=== PATIENT | male | born 1980 | race Caucasian/White ===

== ENCOUNTER 2019-03-24 08:14 | Emergency (ER) | payer BC, OTHER ==
[~2019-03-24] VITALS: Ht 185.4 cm; Wt 132.7 kg
--- NOTE | 2019-03-24 08:30 | ED General ---
General Stated Complaint: RT CHEST/SHOULDER/BACK PAIN History of Present Illness Date Seen by Provider: Mar 24, 2019 Time Seen by Provider: 08:29 Initial Comments Patient presenting to emergency department for evaluation of right-sided chest pain that started yesterday afternoon at rest and has persisted. He says it is a sharp right-sided pain that radiates towards his right shoulder and right scap ular region and is worse with deep breaths and he feels that he cannot take in a deep breath. He does not feel short of breath and he denies any nausea vomiting diaphoresis. He denies any exertional pain or pain with eating. He has no medical history including no diabetes hypertension or high cholesterol but he does smoke cigarettes and says that his father had a heart attack in his 50s. He is in no obvious distress with normal vital signs except hypertension noted. Allergies and Home Medications Allergies Coded Allergies: Penicillins (Verified Allergy, Unknown, 03/24/19) Patient Home Medication List Home Medication List Reviewed: Yes Review of Systems Review of Systems Constitutional: no symptoms reported EENTM: no symptoms reported Respiratory: no symptoms reported Cardiovascular: chest pain Gastrointestinal: no symptoms reported Genitourinary: no symptoms reported Musculoskeletal: back pain Skin: no symptoms reported Psychiatric/Neurological: No Symptoms Reported All Other Systems Reviewed Negative Unless Noted: Yes Past Yhuwajs-Eeoqxv-Xfbtqt Hx Patient Social History Recent Foreign Travel: No Physical Exam Vital Signs Vital Signs - First Documented 03/24/19 08:20 Temp 36.6 Pulse 85 Resp 16 B/P (MAP) 153/107 (122) Pulse Ox 99 O2 Delivery Room Air Capillary Refill : Height, Weight, BMI Height: '" Weight: lbs. oz. kg; BMI Method: General Appearance: No Apparent Distress, WD/WN HEENT: PERRL/EOMI Neck: Supple Respiratory: No Respiratory Distress, Decreased Breath Sounds, Other (R sided chest wall ttp) Cardiovascular: Regular Rate, Rhythm Gastrointestinal: Non Tender, Soft Back: Normal Inspection Extremity: Normal Capillary Refill Neurologic/Psychiatric: Alert, Oriented x3 Progress/Results/Core Measures Suspected Sepsis SIRS Temperature: Pulse: Respiratory Rate: Laboratory Tests 03/24/19 08:30: White Blood Count 8.8 Blood Pressure / Mean: Laboratory Tests 03/24/19 08:30: Creatinine 1.04, Platelet Count 201, Total Bilirubin 0.4 Results/Orders Lab Results Laboratory Tests Test 03/24/19 08:30 Range/Units White Blood Count 8.8 4.3-11.0 10^3/uL Red Blood Count 5.48 4.35-5.85 10^6/uL Hemoglobin 16.9 13.3-17.7 G/DL Hematocrit 48 40-54 % Mean Corpuscular Volume 88 80-99 FL Mean Corpuscular Hemoglobin 31 25-34 PG Mean Corpuscular Hemoglobin Concent 35 32-36 G/DL Red Cell Distribution Width 14.1 10.0-14.5 % Platelet Count 201 130-400 10^3/uL Mean Platelet Volume 11.4 H 7.4-10.4 FL Neutrophils (%) (Auto) 56 42-75 % Lymphocytes (%) (Auto) 31 12-44 % Monocytes (%) (Auto) 9 0-12 % Eosinophils (%) (Auto) 3 0-10 % Basophils (%) (Auto) 1 0-10 % Neutrophils # (Auto) 4.9 1.8-7.8 X 10^3 Lymphocytes # (Auto) 2.7 1.0-4.0 X 10^3 Monocytes # (Auto) 0.8 0.0-1.0 X 10^3 Eosinophils # (Auto) 0.2 0.0-0.3 10^3/uL Basophils # (Auto) 0.1 0.0-0.1 10^3/uL D-Dimer 0.38 0.00-0.49 UG/ML Sodium Level 138 135-145 MMOL/L Potassium Level 4.3 3.6-5.0 MMOL/L Chloride Level 101 98-107 MMOL/L Carbon Dioxide Level 27 21-32 MMOL/L Anion Gap 10 5-14 MMOL/L Blood Urea Nitrogen 17 7-18 MG/DL Creatinine 1.04 0.60-1.30 MG/DL Estimat Glomerular Filtration Rate > 60 BUN/Creatinine Ratio 16 Glucose Level 115 H 70-105 MG/DL Calcium Level 9.6 8.5-10.1 MG/DL Corrected Calcium 9.4 8.5-10.1 MG/DL Total Bilirubin 0.4 0.1-1.0 MG/DL Aspartate Amino Transf (AST/SGOT) 41 H 5-34 U/L Alanine Aminotransferase (ALT/SGPT) 55 0-55 U/L Alkaline Phosphatase 91 40-136 U/L Troponin I < 0.30 <0.30 NG/ML Pro-B-Type Natriuretic Peptide < 5.0 <75.0 PG/ML Total Protein 8.1 6.4-8.2 GM/DL Albumin 4.3 3.2-4.5 GM/DL My Orders Orders - CARMELA ADAMS DO Comprehensive Metabolic Panel (03/24/19 08:36) Cbc With Automated Diff (03/24/19 08:36) Fibrin Degradation Products (03/24/19 08:36) Probnp Fs (03/24/19 08:36) Troponin I Fs (03/24/19 08:36) Chest 1 View Ap/Pa Only (03/24/19 08:36) Aspirin Chewable Tablet (Baby Aspirin Ch (03/24/19 08:45) Albuterol/Ipra Inhalation Soln (Duoneb I (03/24/19 08:45) Hydrocodone/Apap 5/325 Tablet (Lortab 5 (03/24/19 08:45) Ketorolac Injection (Toradol Injection) (03/24/19 08:45) Svn Small Volume Nebulizer (03/24/19 08:36) Medications Given in ED Current Medications Medications Dose Ordered Sig/David Route Start Time Stop Time Status Last Admin Dose Admin Acetaminophen/ Hydrocodone Bitart 2 tab ONCE ONCE PO 03/24/19 08:45 03/24/19 08:46 DC 03/24/19 08:45 2 TAB Albuterol/ Ipratropium 3 ml ONCE ONCE INH 03/24/19 08:45 03/24/19 08:46 DC 03/24/19 08:45 3 ML Aspirin 324 mg ONCE ONCE PO 03/24/19 08:45 03/24/19 08:46 DC 03/24/19 08:44 324 MG Ketorolac Tromethamine 15 mg ONCE ONCE IVP 03/24/19 08:45 03/24/19 08:46 DC 03/24/19 08:45 15 MG Vital Signs/I&O 03/24/19 03/24/19 08:20 08:20 Temp 36.6 Pulse 85 Resp 16 B/P (MAP) 153/107 (122) Pulse Ox 99 O2 Delivery Room Air Room Air Capillary Refill : Progress Note : Progress Note Patient has pleuritic chest pain as well as pain to palpation. He says movements of his torso make his pain worse as well. I have low suspicion for ACS at this time as I feel that it is more likely pleurisy or costochondritis. Will check labs imaging treat symptoms and reassess. EKG is negative for signs of ischemia. Patient's workup completely negative including an EKG and troponin that is negative more than 6 hours out from onset of symptoms. Patient's pain improved significantly after treatment here with Toradol [place] DuoNeb and aspirin. Patient's heart score is equal to 2. Using shared decision making the decision was to treat him for pleurisy and costochondritis as an outpatient have him follow with a primary care provider within 2-3 days to ensure improvement and to make sure no further cardiac risk stratification is be done and come back to the ED sooner with worsening pain shortness of breath or other general concerns. He says he does not have a primary care provider at this time and I offered to attempt to make an appointment for him however he refused stating that he wants to do it on his own. Patient will be discharged in stable condition told to follow-up and come back as above. Patient aware and agreeable with plan and verbalized understanding of the above instructions. Of note patient was told about his elevated blood pressure although it improved to 139/90 discharge. I told him he needs to have this rechecked to see if he needs to be treated for hypertension. Departure Impression Primary Impression: Chest wall pain Additional Impression: Pleuritic pain Disposition: HOME, SELF-CARE Condition: Stable Departure-Patient Inst. Referrals: NO,LOCAL PHYSICIAN (PCP/Family) Primary Care Physician Patient Instructions: Chest Pain (DC) Scripts Prednisone (Prednisone) 20 Mg Tab 40 MG PO DAILY, #8 TAB 0 Refills Prov: CARMELA ADAMS DO 03/24/19 Ibuprofen (Ibuprofen) 600 Mg Tablet 600 MG PO Q6H PRN for PAIN-MILD, #20 TAB Prov: CARMELA ADAMS DO 03/24/19 Albuterol Sulfate (PROAIR HFA) 1 Puff Puff 2 PUFF IH Q4H, #1 INHALER 1 PUFF = 90 MCG Prov: CARMELA ADAMS DO 03/24/19 CARMELA ADAMS DO Mar 24, 2019 08:29 POS
[2019-03-24] MEDS ORDERED: KETOROLAC 15 MG/ML VIAL IVP ONE (08:45)
[2019-03-24] MEDS ORDERED: RT-ALBUTEROL/IPRATROPIUM 3 ML (DUONEB) VIAL INH ONE (08:45)
[2019-03-24] MEDS ORDERED: ASPIRIN 81 MG CHEW (CHILDREN'S ASA) PO ONE (08:45)
[2019-03-24] MEDS ORDERED: HYDROcodone/APAP 5 MG/325 MG (LORTAB) TAB PO ONE (08:45)
[2019-03-24 08:53] LABS: HEMATOCRIT 48 % (40-54); HEMOGLOBIN 16.9 G/DL (13.3-17.7); MEAN CORPUSCULAR HEMOGLOBIN 31 PG (25-34); MEAN CORPUSCULAR HGB CONC 35 G/DL (32-36); MEAN CORPUSCULAR VOLUME 88 FL (80-99); WHITE BLOOD COUNT 8.8 10^3/uL (4.3-11.0)
[2019-03-24 08:54] LABS: BASOPHILS # (AUTO) 0.1 10^3/uL (0.0-0.1); BASOPHILS % (AUTO) 1 % (0-10); EOSINOPHILS # (AUTO) 0.2 10^3/uL (0.0-0.3); EOSINOPHILS % (AUTO) 3 % (0-10); LYMPHOCYTES # (AUTO) 2.7 X 10^3 (1.0-4.0); LYMPHOCYTES % (AUTO) 31 % (12-44); MEAN PLATELET VOLUME 11.4 FL (7.4-10.4); MONOCYTES # (AUTO) 0.8 X 10^3 (0.0-1.0); MONOCYTES % (AUTO) 9 % (0-12); NEUTROPHILS # (AUTO) 4.9 X 10^3 (1.8-7.8); NEUTROPHILS % (AUTO) 56 % (42-75); PLATELET COUNT 201 10^3/uL (130-400); RED CELL DISTRIBUTION WIDTH 14.1 % (10.0-14.5)
--- NOTE | 2019-03-24 08:54 | Diagnostic Imaging Report ---
INDICATION: Chest pain. COMPARISON: No prior examinations are available for comparison. FINDINGS: The heart size, mediastinal configuration, and pulmonary vascularity are within normal limits. There is no pleural effusion, pneumothorax, or pneumonia. The osseous structures are unremarkable. IMPRESSION: No acute cardiopulmonary abnormality. Dictated by: Dictated on workstation # [id number]
[2019-03-24 09:25] LABS: ALANINE AMINOTRANSFERASE 55 U/L (0-55); ALKALINE PHOSPHATASE 91 U/L (40-136); BILIRUBIN,TOTAL 0.4 MG/DL (0.1-1.0); BUN/CREATININE RATIO 16; CALCIUM 9.6 MG/DL (8.5-10.1); CARBON DIOXIDE 27 MMOL/L (21-32); CHLORIDE 101 MMOL/L (98-107); CREATININE SERUM 1.04 MG/DL (0.60-1.30); GFR ESTIMATED > 60; GLUCOSE 115 MG/DL (70-105); POTASSIUM 4.3 MMOL/L (3.6-5.0); SODIUM 138 MMOL/L (135-145)
[2019-03-24 09:26] LABS: ALBUMIN 4.3 GM/DL (3.2-4.5); TOTAL PROTEIN 8.1 GM/DL (6.4-8.2)
[2019-03-24] MEDS ORDERED: RT-ALBUINH IH (09:51)
[2019-03-24] MEDS ORDERED: PRD20T PO (09:51)
[2019-03-24] MEDS ORDERED: IBUP-1773 PO (09:51)
[2019-03-24] MEDS ORDERED: predniSONE 20 MG TAB PO ONE (10:00)
[2019-03-24 10:01] VITALS: BP 153/107
== END 2019-03-24 10:01 | disposition home or self-care (01) ==
LOC: EDUNIT# 08:14 → ER FS 08:16
DX: R07.89 Other chest pain (principal); R07.81 Pleurodynia; F17.210 Nicotine dependence, cigarettes, uncomplicated; Z88.0 Allergy status to penicillin
CPT/HCPCS: 36415; 71045; 80053; 83880; 84484; 85025; 85379; 96374

== ENCOUNTER 2022-07-26 08:30 | Inpatient (IN) | payer BC, OTHER ==
[~2022-07-26] VITALS: Ht 185 cm; Wt 127.7 kg
[~2022-07-26 08:30] MED LIST: ALBU8.5H6 IH; IBUP-1773 PO; PRD20T PO
--- NOTE | 2022-07-26 08:42 | ED Chest Pain ---
General Chief Complaint: Chest Pain Stated Complaint: CHEST PAIN Nursing Triage Note: Patient reports he has had sternal chest tightness for 1 week. He states the tightness is worse with activity and better with rest. History of Present Illness Date Seen by Provider: Jul 26, 2022 Time Seen by Provider: 08:41 Initial Comments 42-year-old male with no significant past medical history except for active smoker, smokes 1 pack a day for the past 20 years, is here with complaints of retrosternal chest tightness and pain which has been going on for 1 week. Patient states that it is aggravated with activity and associated with shortness of breath during that time, and alleviated by rest. Patient states that it has worsened last night and he wanted to make sure it was not his heart. Denies heartburn, acid reflux, fever and chills, palpitations, cough, recent illnesses, congestion, wheezing. Allergies and Home Medications Allergies Coded Allergies: Penicillins (Verified Allergy, Unknown, 03/24/19) Patient Home Medication List Home Medication List Reviewed: Yes Albuterol Sulfate (Ventolin Hfa) 1 Puff Puff, 2 PUFF IH Q4H Prescribed by: CARMELA ADAMS on 03/24/19950 Ibuprofen (Ibuprofen) 600 Mg Tablet, 600 MG PO Q6H PRN for PAIN-MILD Prescribed by: CARMELA ADAMS on 03/24/19950 Prednisone (Prednisone) 20 Mg Tab, 40 MG PO DAILY Prescribed by: CARMELA ADAMS on 03/24/19950 Review of Systems Review of Systems Constitutional: no symptoms reported EENTM: No Symptoms Reported Respiratory: SOA With Exertion Cardiovascular: Chest Pain Gastrointestinal: No Symptoms Reported Genitourinary: No Symptoms Reported Musculoskeletal: no symptoms reported Skin: no symptoms reported Psychiatric/Neurological: No Symptoms Reported Endocrine: No Symptoms Reported Hematologic/Lymphatic: No Symptoms Reported Past Bdflizx-Nmizcj-Gkcave Hx Seasonal Allergies Seasonal Allergies: No Past Medical History Surgeries: No Respiratory: No Cardiac: No Neurological: No Genitourinary: No Gastrointestinal: No Musculoskeletal: No Endocrine: No HEENT: No Cancer: No Psychosocial: No Integumentary: No Blood Disorders: No Physical Exam Vital Signs Vital Signs - First Documented 07/26/22 08:38 Temp 35.9 Pulse 82 Resp 15 B/P (MAP) 169/112 (131) Pulse Ox 100 O2 Delivery Room Air Capillary Refill : Less Than 3 Seconds Height, Weight, BMI Height: '" Weight: lbs. oz. kg; 38.00 BMI Method: General Appearance: No Apparent Distress HEENT: PERRL/EOMI Neck: Full Range of Motion, Normal Inspection, Non Tender, Supple Respiratory: Lungs Clear, Normal Breath Sounds, No Accessory Muscle Use, Other (Reproducible tenderness present over the right side fourth and fifth costochondral junctions) Cardiovascular: Regular Rate, Rhythm, No Edema, No Murmur Gastrointestinal: Normal Bowel Sounds, Non Tender, Soft Extremity: Normal Range of Motion Neurologic/Psychiatric: Alert, Oriented x3, Normal Mood/Affect Skin: Normal Color Lymphatic: No Adenopathy Progress/Results/Core Measures Results/Orders Lab Results Laboratory Tests Test 07/26/22 08:45 07/26/22 10:17 07/26/22 11:13 Range/Units White Blood Count 7.4 4.3-11.0 10^3/uL Red Blood Count 5.20 4.30-5.52 10^6/uL Hemoglobin 15.7 13.3-17.7 g/dL Hematocrit 45 40-54 % Mean Corpuscular Volume 86 80-99 fL Mean Corpuscular Hemoglobin 30 25-34 pg Mean Corpuscular Hemoglobin Concent 35 32-36 g/dL Red Cell Distribution Width 13.7 10.0-14.5 % Platelet Count 188 130-400 10^3/uL Mean Platelet Volume 10.2 9.0-12.2 fL Immature Granulocyte % (Auto) 0 % Neutrophils (%) (Auto) 56 42-75 % Lymphocytes (%) (Auto) 31 12-44 % Monocytes (%) (Auto) 9 0-12 % Eosinophils (%) (Auto) 3 0-10 % Basophils (%) (Auto) 1 0-10 % Neutrophils # (Auto) 4.2 1.8-7.8 10^3/uL Lymphocytes # (Auto) 2.3 1.0-4.0 10^3/uL Monocytes # (Auto) 0.6 0.0-1.0 10^3/uL Eosinophils # (Auto) 0.2 0.0-0.3 10^3/uL Basophils # (Auto) 0.1 0.0-0.1 10^3/uL Immature Granulocyte # (Auto) 0.0 0.0-0.1 10^3/uL Sodium Level 141 135-145 MMOL/L Potassium Level 3.9 3.6-5.0 MMOL/L Chloride Level 104 98-107 MMOL/L Carbon Dioxide Level 27 21-32 MMOL/L Anion Gap 10 5-14 MMOL/L Blood Urea Nitrogen 14 7-18 MG/DL Creatinine 1.08 0.60-1.30 MG/DL Estimat Glomerular Filtration Rate 88 BUN/Creatinine Ratio 13 Glucose Level 109 H 70-105 MG/DL Calcium Level 8.9 8.5-10.1 MG/DL Corrected Calcium 8.8 8.5-10.1 MG/DL Magnesium Level 2.1 1.6-2.4 MG/DL Total Bilirubin 0.5 0.1-1.0 MG/DL Aspartate Amino Transf (AST/SGOT) 33 5-34 U/L Alanine Aminotransferase (ALT/SGPT) 37 0-55 U/L Alkaline Phosphatase 97 40-136 U/L Troponin I 0.70 *H 0.73 *H <0.30 NG/ML Total Protein 7.5 6.4-8.2 GM/DL Albumin 4.1 3.2-4.5 GM/DL Urine Color YELLOW Urine Clarity CLEAR Urine pH 7.0 5-9 Urine Specific [place] 1.020 1.016-1.022 Urine Protein NEGATIVE NEGATIVE Urine Glucose (UA) NEGATIVE NEGATIVE Urine Ketones NEGATIVE NEGATIVE Urine Nitrite NEGATIVE NEGATIVE Urine Bilirubin NEGATIVE NEGATIVE Urine Urobilinogen 1.0 < = 1.0 MG/DL Urine Leukocyte Esterase NEGATIVE NEGATIVE Urine RBC (Auto) NEGATIVE NEGATIVE Urine RBC NONE /HPF Urine WBC 0-2 /HPF Urine Squamous Epithelial Cells 2-5 /HPF Urine Crystals NONE /LPF Urine Bacteria NEGATIVE /HPF Urine Casts NONE /LPF Urine Mucus SMALL H /LPF Urine Culture Indicated NO Urine Opiates Screen NEGATIVE NEGATIVE Urine Oxycodone Screen NEGATIVE NEGATIVE Urine Methadone Screen NEGATIVE NEGATIVE Urine Propoxyphene Screen NEGATIVE NEGATIVE Urine Barbiturates Screen NEGATIVE NEGATIVE Ur Tricyclic Antidepressants Screen NEGATIVE NEGATIVE Urine Phencyclidine Screen NEGATIVE NEGATIVE Urine Amphetamines Screen NEGATIVE NEGATIVE Urine Methamphetamines Screen NEGATIVE NEGATIVE Urine Benzodiazepines Screen NEGATIVE NEGATIVE Urine Cocaine Screen NEGATIVE NEGATIVE Urine Cannabinoids Screen NEGATIVE NEGATIVE My Orders Orders - MERRY DÍAZ MD Aspirin Chewable Tablet (Baby Aspirin Ch (07/26/22 08:45) Ekg Tracing (07/26/22 08:43) Ed Iv/Invasive Line Start (07/26/22 08:43) Monitor-Rhythm Ecg Trace Only (07/26/22 08:43) Cbc With Automated Diff (07/26/22 08:43) Comprehensive Metabolic Panel (07/26/22 08:43) Drug Screen Stat (Urine) (07/26/22 08:43) Magnesium (07/26/22 08:43) Ua Culture If Indicated (07/26/22 08:43) Troponin I Fs (07/26/22 08:43) Chest 1 View Ap/Pa Only (07/26/22 ) Ed Iv/Invasive Line Start (07/26/22 09:25) Ns Iv 1000 Ml (Sodium Chloride 0.9%) (07/26/22 09:30) Troponin I Fs (07/26/22 09:49) Ekg Tracing (07/26/22 09:50) Continuous Ekg Monitoring (07/26/22 09:50) Ed Iv/Invasive Line Start (07/26/22 10:56) Ns Iv 500 Ml (Sodium Chloride 0.9%) (07/26/22 11:00) Ed Admission (Communication) (07/26/22 11:27) Medications Given in ED Current Medications Medications Dose Ordered Sig/David Route Start Time Stop Time Status Last Admin Dose Admin Aspirin 324 mg ONCE ONCE PO 07/26/22 08:45 07/26/22 08:46 DC 07/26/22 08:55 324 MG Sodium Chloride 500 ml @ 0 mls/hr Q0M ONCE IV 07/26/22 11:00 07/26/22 11:01 DC 07/26/22 11:05 500 MLS/HR Vital Signs/I&O 07/26/22 08:38 Temp 35.9 Pulse 82 Resp 15 B/P (MAP) 169/112 (131) Pulse Ox 100 O2 Delivery Room Air Blood Pressure Mean: 131 Progress Progress Note : Progress Note 1. STABLE ANGINA vs NSTEMI: - CXR: no acute findings - EKG #1 & #2: non-ischemic - Troponin elevated :0.70, 2nd is 0.73 - CBC/ CMP: unremarkable - UDS: negative - ASA 324mg STAT - NS IVF - Pt's chest pain has improved but still present -Smoking cessation advised - Will admit to observation for serial EKG and serial troponin and cardiology consult, due to elevated troponin x2, ongoing chest discomfort, and family history of father passing away due to an CO in his early 50s.. Discussed with Marketing Effectiveness Manager, and accepted by hospitlaist for admission to cardiac step down Initial ECG Impression Date: Jul 26, 2022 Initial ECG Impression Time: 08:34 Initial ECG Rate: 82 Initial ECG Rhythm: Normal Sinus Initial ECG Intervals: Normal Initial ECG Impression: Normal Initial ECG Comparisson: No Previous ECG Available EKG : EKG Time: 10:17 Rate: 60 Rhythm: Normal Sinus Intervals: Normal ECG Comparisson: Unchanged ECG Impression: Normal Diagnostic Imaging Diagonstic Imaging: Xray Plain Films/CT/US/NM/MRI: chest Comments [facility], [place] NAME: [facility] REC#: [id number] PT STATUS: REG ER : 1980 PHYSICIAN: MERRY DÍAZ MD ADMIT DATE: 07/26/22/ER FS Signed Date of Exam:07/26/22 CHEST 1 VIEW AP/PA ONLY EXAMINATION: Chest 1 view HISTORY: Chest pain. COMPARISON: 03/24/2019. FINDINGS: The lung volumes are normal. No focal consolidation is seen. No large pleural effusion or pneumothorax is seen. The cardiomediastinal silhouette is normal in size and contour. No acute osseous abnormality is seen. IMPRESSION: 1. No acute pleuroparenchymal process. Dictated by: Dictated on workstation # [id number] Dict: 07/26/22 0933 Trans: 07/26/22 0937 [id number] Interpreted by: ALFRED CACERES DO Electronically signed by: ALFRED CACERES DO 07/26/22 0937 Departure Communication (Admissions) Time/Spoke to Admitting Phy: 11:20 Discussed with hospitalist, Dr. Cotter, and will admit to cardiac stepdown Time/Spoke to Consulting Phy: 11:[address] Martins, weeder and will admit to [facility] Impression Primary Impression: Stable angina Additional Impression: NSTEMI (non-ST elevated myocardial infarction) Disposition: 30 STILL A PATIENT Condition: Stable Admissions Decision to Admit Reason: Admit from ER (General) Decision to Admit/Date: Jul 26, 2022 Time/Decision to Admit Time: 10:45 Transfer Method of Transfer: EMS Departure-Patient Inst. Referrals: NO,LOCAL PHYSICIAN (PCP/Family) Primary Care Physician MERRY DÍAZ MD Jul 26, 2022 08:42
[2022-07-26] MEDS ORDERED: ASPIRIN 81 MG CHEW (CHILDREN'S ASA) PO ONE (08:45)
[2022-07-26 08:54] LABS: BASOPHILS # (AUTO) 0.1 10^3/uL (0.0-0.1); BASOPHILS % (AUTO) 1 % (0-10); EOSINOPHILS # (AUTO) 0.2 10^3/uL (0.0-0.3); EOSINOPHILS % (AUTO) 3 % (0-10); HEMATOCRIT 45 % (40-54); HEMOGLOBIN 15.7 g/dL (13.3-17.7); LYMPHOCYTES # (AUTO) 2.3 10^3/uL (1.0-4.0); LYMPHOCYTES % (AUTO) 31 % (12-44); MEAN CORPUSCULAR HEMOGLOBIN 30 pg (25-34); MEAN CORPUSCULAR HGB CONC 35 g/dL (32-36); MEAN CORPUSCULAR VOLUME 86 fL (80-99); MEAN PLATELET VOLUME 10.2 fL (9.0-12.2); MONOCYTES # (AUTO) 0.6 10^3/uL (0.0-1.0); MONOCYTES % (AUTO) 9 % (0-12); NEUTROPHILS # (AUTO) 4.2 10^3/uL (1.8-7.8); NEUTROPHILS % (AUTO) 56 % (42-75); PLATELET COUNT 188 10^3/uL (130-400); WHITE BLOOD COUNT 7.4 10^3/uL (4.3-11.0)
[2022-07-26 09:16] LABS: ALBUMIN 4.1 GM/DL (3.2-4.5); BILIRUBIN,TOTAL 0.5 MG/DL (0.1-1.0); CALCIUM 8.9 MG/DL (8.5-10.1); CREATININE SERUM 1.08 MG/DL (0.60-1.30); MAGNESIUM 2.1 MG/DL (1.6-2.4); POTASSIUM 3.9 MMOL/L (3.6-5.0); TOTAL PROTEIN 7.5 GM/DL (6.4-8.2)
[2022-07-26] MEDS ORDERED: NS IV 1000 ML 1,000 ML IV SCH (09:30)
--- NOTE | 2022-07-26 09:34 | Diagnostic Imaging Report ---
EXAMINATION: Chest 1 view HISTORY: Chest pain. COMPARISON: 03/24/2019. FINDINGS: The lung volumes are normal. No focal consolidation is seen. No large pleural effusion or pneumothorax is seen. The cardiomediastinal silhouette is normal in size and contour. No acute osseous abnormality is seen. IMPRESSION: 1. No acute pleuroparenchymal process. Dictated by: Dictated on workstation # [id number]
[2022-07-26] MEDS ORDERED: NS IV 500 ML 500 ML IV ONE (11:00)
[2022-07-26 11:19] LABS: BILIRUBIN,URINE NEGATIVE (NEGATIVE); CLARITY,URINE CLEAR; COLOR,URINE YELLOW; GLUCOSE, URINE (UA) NEGATIVE (NEGATIVE); KETONES,URINE NEGATIVE (NEGATIVE); LEUKOCYTE ESTERASE ,URINE NEGATIVE (NEGATIVE); NITRITE,URINE NEGATIVE (NEGATIVE); PROTEIN,URINE NEGATIVE (NEGATIVE)
[2022-07-26 11:25] LABS: BACTERIA,URINE NEGATIVE /HPF; WBC,URINE 0-2 /HPF
[2022-07-26 11:32] LABS: AMPHETAMINE SCREEN, URINE NEGATIVE (NEGATIVE); BARBITURATE SCREEN URINE NEGATIVE (NEGATIVE); BENZODIAZEPINES SCREEN URINE NEGATIVE (NEGATIVE); CANNABINOID SCREEN, URINE NEGATIVE (NEGATIVE); COCAINE SCREEN URINE NEGATIVE (NEGATIVE); OPIATE SCREEN URINE NEGATIVE (NEGATIVE); TRICYCLIC ANTIDEPRESSANTS SCRE NEGATIVE (NEGATIVE)
[2022-07-26 11:33] LABS: METHADONE STAT NEGATIVE (NEGATIVE); OXYCODONE STAT NEGATIVE (NEGATIVE); PROPOXYPHENE STAT NEGATIVE (NEGATIVE)
[2022-07-26] MEDS ORDERED: ONDANSETRON 4 MG/2 ML (SDV) Z0FRAN IV PRN ×2 (12:45→13:45)
[2022-07-26] MEDS ORDERED: ANTACID SUSP 30 ML UDC (MYLANTA) PO PRN ×2 (12:45→13:45)
[2022-07-26] MEDS ORDERED: polyethylene glycoL POWDER 17 GM (MIRALAX) PACK PO PRN ×2 (12:45→13:45)
[2022-07-26] MEDS ORDERED: ACETAMINOPHEN 325 MG TABLET PO PRN (12:45)
[2022-07-26] MEDS ORDERED: BISACODYL 10 MG SUPP (DULCOLAX) PR PRN ×2 (12:45→13:45)
[2022-07-26] MEDS ORDERED: MELATONIN 3 MG TABLET PO PRN ×2 (12:45→13:45)
[2022-07-26] MEDS ORDERED: LACTATED RINGERS 1,000 ML IV SCH (12:45)
[2022-07-26] MEDS ORDERED: ONDANSETRON 4 MG (ZOFRAN) ORAL DISSOLVE TAB PO PRN ×2 (12:45→13:45)
[2022-07-26] MEDS ORDERED: diphenhydrAMINE 50 MG/ML INJ (BENADRYL) IVP PRN (12:45)
[2022-07-26] MEDS ORDERED: diphenhydrAMINE 25 MG TAB (BENADRYL) PO PRN ×2 (12:45→13:45)
[2022-07-26 13:00] VITALS: BP 166/114
[2022-07-26] MEDS ORDERED: diphenhydrAMINE 50 MG/ML INJ (BENADRYL) IV PRN ×2 (13:45)
[2022-07-26] MEDS ORDERED: LIDOCAINE 1% INJ 20 ML VIAL ONE (13:57)
[2022-07-26] MEDS ORDERED: HEParin (CATH LAB) 2,000 ML IV ONE (13:57)
[2022-07-26] MEDS ORDERED: NS IV 1000 ML 1,000 ML ONE (13:57)
[2022-07-26] MEDS ORDERED: fentaNYL INJ 100 MCG/2 ML AMP ONE (13:58)
[2022-07-26] MEDS ORDERED: VERAPAMIL 5 MG/2 ML (CALAN) VIAL IV ONE (13:59)
[2022-07-26] MEDS ORDERED: HEParin 1000 UNIT/ML (10ML VIAL) FOR BOLUS ONE (13:59)
[2022-07-26] MEDS ORDERED: MIDAZOLAM 5 MG/5 ML (VERSED) VIAL ONE (13:59)
[2022-07-26] MEDS ORDERED: NITRO DRIP 25000 MCG/D5W 250 ML IV ONE (13:59)
--- NOTE | 2022-07-26 14:06 | Consultation-Cardiology ---
HPI-Cardiology Cardiology Consultation Date of Consultation 07/26/22 Date of Admission Time Seen by Provider: 14:04 Indication: Chest pain HPI 42-year-old gentleman with history of tobaccoism, strong family history of heart disease, has been having waxing and waning chest pain for the past week. Became more significant yesterday. He reported 1 episode of vomiting 2 days ago. He reported increasing shortness of breath on exertion which has been worsening significantly yesterday. No palpitation. No syncope or near syncopal episode, came into the emergency room, no acute EKG changes, still having active chest discomfort, noted to have mildly elevated troponin Home Medications & Allergies Allergies: Coded Allergies: Penicillins (Verified Allergy, Unknown, 03/24/19) Home Medication List Reviewed: Yes Does not take any medication [id number] Hx Patient Social History Marital Status: Employed/Student: employed Smoking Status: Current Everyday Smoker Type Used: Cigarettes 2nd Hand Smoke Exposure: No Recent Hopitalizations: No Have you traveled recently?: No Alcohol Use?: No Past Medical History Discussed below Family Medical History Significant Family History: No Pertinent Family Hx Review of Systems-General Review of Systems Constitutional: no symptoms reported EENTM: see HPI, no symptoms reported Respiratory: see HPI; No cough; dyspnea on exertion; No hemoptysis, No orthopnea, No phlegm, No short of breath, No stridor, No wheezing, No other Cardiovascular: see HPI, chest pain; No edema, No Hx of Intervention, No palpitations, No syncope, No vascular heart diseas, No other Gastrointestinal: no symptoms reported, see HPI Genitourinary: no symptoms reported, see HPI Musculoskeletal: no symptoms reported Skin: no symptoms reported Psychiatric/Neurological: No Symptoms Reported Reviewed Test Results Reviewed Test Results Lab Laboratory Tests Test 07/26/22 08:45 07/26/22 10:17 07/26/22 11:13 Range/Units White Blood Count 7.4 4.3-11.0 10^3/uL Red Blood Count 5.20 4.30-5.52 10^6/uL Hemoglobin 15.7 13.3-17.7 g/dL Hematocrit 45 40-54 % Mean Corpuscular Volume 86 80-99 fL Mean Corpuscular Hemoglobin 30 25-34 pg Mean Corpuscular Hemoglobin Concent 35 32-36 g/dL Red Cell Distribution Width 13.7 10.0-14.5 % Platelet Count 188 130-400 10^3/uL Mean Platelet Volume 10.2 9.0-12.2 fL Immature Granulocyte % (Auto) 0 % Neutrophils (%) (Auto) 56 42-75 % Lymphocytes (%) (Auto) 31 12-44 % Monocytes (%) (Auto) 9 0-12 % Eosinophils (%) (Auto) 3 0-10 % Basophils (%) (Auto) 1 0-10 % Neutrophils # (Auto) 4.2 1.8-7.8 10^3/uL Lymphocytes # (Auto) 2.3 1.0-4.0 10^3/uL Monocytes # (Auto) 0.6 0.0-1.0 10^3/uL Eosinophils # (Auto) 0.2 0.0-0.3 10^3/uL Basophils # (Auto) 0.1 0.0-0.1 10^3/uL Immature Granulocyte # (Auto) 0.0 0.0-0.1 10^3/uL Sodium Level 141 135-145 MMOL/L Potassium Level 3.9 3.6-5.0 MMOL/L Chloride Level 104 98-107 MMOL/L Carbon Dioxide Level 27 21-32 MMOL/L Anion Gap 10 5-14 MMOL/L Blood Urea Nitrogen 14 7-18 MG/DL Creatinine 1.08 0.60-1.30 MG/DL Estimat Glomerular Filtration Rate 88 BUN/Creatinine Ratio 13 Glucose Level 109 H 70-105 MG/DL Calcium Level 8.9 8.5-10.1 MG/DL Corrected Calcium 8.8 8.5-10.1 MG/DL Magnesium Level 2.1 1.6-2.4 MG/DL Total Bilirubin 0.5 0.1-1.0 MG/DL Aspartate Amino Transf (AST/SGOT) 33 5-34 U/L Alanine Aminotransferase (ALT/SGPT) 37 0-55 U/L Alkaline Phosphatase 97 40-136 U/L Troponin I 0.70 *H 0.73 *H <0.30 NG/ML Total Protein 7.5 6.4-8.2 GM/DL Albumin 4.1 3.2-4.5 GM/DL Urine Color YELLOW Urine Clarity CLEAR Urine pH 7.0 5-9 Urine Specific [place] 1.020 1.016-1.022 Urine Protein NEGATIVE NEGATIVE Urine Glucose (UA) NEGATIVE NEGATIVE Urine Ketones NEGATIVE NEGATIVE Urine Nitrite NEGATIVE NEGATIVE Urine Bilirubin NEGATIVE NEGATIVE Urine Urobilinogen 1.0 < = 1.0 MG/DL Urine Leukocyte Esterase NEGATIVE NEGATIVE Urine RBC (Auto) NEGATIVE NEGATIVE Urine RBC NONE /HPF Urine WBC 0-2 /HPF Urine Squamous Epithelial Cells 2-5 /HPF Urine Crystals NONE /LPF Urine Bacteria NEGATIVE /HPF Urine Casts NONE /LPF Urine Mucus SMALL H /LPF Urine Culture Indicated NO Urine Opiates Screen NEGATIVE NEGATIVE Urine Oxycodone Screen NEGATIVE NEGATIVE Urine Methadone Screen NEGATIVE NEGATIVE Urine Propoxyphene Screen NEGATIVE NEGATIVE Urine Barbiturates Screen NEGATIVE NEGATIVE Ur Tricyclic Antidepressants Screen NEGATIVE NEGATIVE Urine Phencyclidine Screen NEGATIVE NEGATIVE Urine Amphetamines Screen NEGATIVE NEGATIVE Urine Methamphetamines Screen NEGATIVE NEGATIVE Urine Benzodiazepines Screen NEGATIVE NEGATIVE Urine Cocaine Screen NEGATIVE NEGATIVE Urine Cannabinoids Screen NEGATIVE NEGATIVE Physical Exam Physical Exam Vital Signs Vital Signs - First Documented 07/26/22 08:38 Temp 35.9 Pulse 82 Resp 15 B/P (MAP) 169/112 (131) Pulse Ox 100 O2 Delivery Room Air Capillary Refill : Less Than 3 Seconds Height, Weight, BMI Height: '" Weight: lbs. oz. kg; 37.98 BMI Method: General Appearance: No Apparent Distress Eyes: Bilateral Eye Normal Inspection, Bilateral Eye PERRL, Bilateral Eye EOMI HEENT: PERRL/EOMI Neck: Full Range of Motion, Normal Inspection, Non Tender, Supple Respiratory: Lungs Clear, Normal Breath Sounds, No Accessory Muscle Use, Other (Reproducible tenderness present over the right side fourth and fifth costochondral junctions) Cardiovascular: Regular Rate, Rhythm, No Edema, No Murmur Gastrointestinal: Normal Bowel Sounds, Non Tender, Soft Back: Normal Inspection, No CVA Tenderness, No Vertebral Tenderness Extremity: Normal Range of Motion Neurologic/Psychiatric: Alert, Oriented x3, Normal Mood/Affect Skin: Normal Color Lymphatic: No Adenopathy A/P-Cardiology Admission Diagnosis Chest pain Non-ST elevation myocardial infarction Dyspnea on exertion Tobaccoism Assessment/Plan Chest pain, still having active chest pain No acute EKG changes Mildly elevated troponin Strong family history of heart disease and tobaccoism Discussed the management plan and recommended cardiac catheterization possible PTCA Dyspnea on exertion worsening in the past 24 hours. Planning for cardiac catheterization, will evaluate 2D echo Tobaccoism, educated on smoking cessation Strong family history of heart disease BMI 38, we discussed weight loss Clinical Quality Measures AMI/AHF: ASA po Prior to arrival: TAYO Hoyt MD Jul 26, 2022 14:06
--- NOTE | 2022-07-26 14:07 | Cardiac Procedure Note-CS/ASA ---
Pre-Procedure Note Pre-Op Procedure Note Date of Available H&P: Jul 26, 2022 Date H&P Reviewed: Jul 26, 2022 Time H&P Reviewed: 14:07 History & Physical: H&P Reviewed, Patient Examed, No changes noted Pre-Operative Diagnosis: CAD Moderate Sedation PreProcedure Time 14:07 ASA Score 3 Airway Lungs Heart ASA score ASA 1: a normal healthy patient ASA 2: a patient with a mild systemic disease (mid diabetes, controlled hypertension, obesity ASA 3: a patient with a severe systemic disease that limits activity (angina, COPD, prior Myocardial infarction) ASA 4: a patient with an incapacitating disease that is a constant threat to life (CHF, renal failure) ASA 5: a moribund patient not expected to survive 24 hrs. (ruptured aneurysm) ASA 6: a declared brain- patient whose organs are being harvested. For emergent operations, add the letter E after the classification Mallampati Classification Grade 3 Sedation Plan Analgesia, Amnesia, Plan communicated to team members, Discussed options with patient/fam, Discussed risks with patient/fam The patient is an appropriate candidate to undergo the planned procedure, sedation, and anesthesia. The patient immediately re-assessed prior to indication. TAYO HART MD Jul 26, 2022 14:07
[2022-07-26] MEDS ORDERED: ASPIRIN 325 MG (5 GR) TABLET ONE (15:28)
[2022-07-26] MEDS ORDERED: TICAGRELOR 90 MG TABLET (BRILINTA) PO ONE (15:28)
[2022-07-26] MEDS ORDERED: meTOprolol 5 MG/5 ML (LOPRESSOR) VIAL ONE (15:44)
[2022-07-26] MEDS ORDERED: PATIENT MAY USE OWN MEDS, ALL PO SCH (15:45)
--- NOTE | 2022-07-26 15:52 | Cardiac Cath Report ---
Cardiac Cath Report Physician (s)/Milling Machine Set Up Operator (s) Physician TAYO HART MD Pre-Procedure Diagnosis Pre-Procedure Diagnosis: CAD Post-Procedure Note Procedure Start Date: Jul 26, 2022 Name of Procedure: Left heart catheterization Stenting to the right coronary artery Findings/Procedure Note PROCEDURE NOTE: 42-year-old gentleman admitted with non-ST elevation myocardial infarction We will arrange for emergency cardiac catheterization After explaining the procedure to the patient, all pros and cons were explained, all questions were answered. The patient signed the consent and then he was placed in the cardiac catheterization laboratory. Groin was prepped in SL fashion local anesthesia was used. Sheath was placed in the right radial artery, [place] catheter prolapsed to the left ventricular cavity, I was unable to engage any of the coronary system subsequently the sheath was flushed and sheath placed in the right femoral artery. Sherman' right and left catheter were used to access the coronary system. Patient has total occlusion of the right coronary artery. Total of 8000 units of heparin were given, Sherman right guide with sideholes was used, I advanced a BMW wire in the right coronary artery and I was unsuccessful to cross the lesion did not I tried with whisper extra-support wire without success, then I used 2 x 20 balloon to support the wire and I was able to cross the total occlusion at the mid right coronary artery and was able to advance to the right PDA with difficulties, then I proceeded with balloon angioplasty using 2 x 20 then 3 x 30 balloon then proceeded with deployment of Osiro stent 3.5 x 40 mm expanded to 3.8 mm at the distal right coronary artery then put another stent 3.5 x 15 mm overlapping with the previous stent, both postdilated to 3.8 mm. Angiogram showed excellent results. At the end of the procedure the sheath was removed. Closure device deployed to the groin and vascular band to the wrist FINDINGS: Hemodynamics LV 134/25, end-diastolic pressure of 25 Aorta 162/119 mean of 140 ANATOMY: Left Main has no obstructive disease Left Anterior Descending is moderate in size with no obstructive disease Left Circumflex is moderate in size with the second obtuse marginal branch has 50 to 60% stenosis Right Coronary Artery has 50 to 60% proximal stenosis, total occlusion at the midportion, complex intervention with multiple wires and balloon then deployment of 2 overlapping stent extending from the mid right coronary artery to the distal portion of the right coronary artery just above the bifurcation using Osiro drug-eluting stent distally 3.5 x 40 mm overlapping proximally at the midportion with 3.5 x 15 mm both expanded proximally to 3.8 mm and distally to 3.7 mm with excellent results. No residual stenosis. LV Gram was done showing dilated left ventricle with questionable hypokinesia at the inferior wall, ejection fraction 50% PERCUTANEOUS INTERVENTION: Pre stenosis 100% Post Stenosis 0% Pre JENNIFER flow 0 Post JENNIFER flow 3 Dominance right coronary artery CONCLUSION: Subacute myocardial infarction with total occlusion on the mid right coronary artery with complex intervention involving multiple wires and balloon then deployment of 2 overlapping stents Osiro 3.5 x 50 mm at the midportion followed by 3.5 x 40 mm long stent extending to the bifurcation with 0% residual stenosis. Proximal right coronary artery has 50 to 60% stenosis which will be monitored, planning to do the stress test Second obtuse marginal branch has ostial 50 to 60% stenosis which will be monitored and planning to do a stress test Otherwise nonobstructive disease Dilated left ventricle with inferior wall hypokinesia with ejection fraction 50% DISCUSSION AND RECOMMENDATION: Continue to maximize medical therapy patient was started on aspirin, Brilinta, Coreg, losartan and Lipitor 80 mg in addition to Jardiance Anesthesia Type: Conscious Sedation Estimated blood loss (mL): 30 ml Contrast Amount: 238 ml Total Radiation Dose: 3062 mGy Post-Procedure Diagnosis Post-operative diagnosis: Non-ST elevation myocardial infarction Coronary artery disease Hypertension Hyperlipidemia TAYO HART MD Jul 26, 2022 15:52
[2022-07-26 16:00] VITALS: BP 136/107
[2022-07-26] MEDS: NS IV 1000 ML 1,000 ML IV SCH (16:00)
[2022-07-26 17:00] VITALS: BP 132/89
[2022-07-26 18:00] VITALS: BP 136/95
[2022-07-26] MEDS ORDERED: oxyCODONE/APAP 5/325MG (PERCOCET 5) TABLET PO ONE (19:45)
[2022-07-26] MEDS ORDERED: oxyCODONE/APAP 5/325MG (PERCOCET 5) TABLET ONE (19:51)
[2022-07-26 20:00] VITALS: BP 148/93
[2022-07-26] MEDS: TICAGRELOR 90 MG TABLET (BRILINTA) PO SCH (20:36)
[2022-07-26] MEDS: DOCUSATE SODIUM 100 MG (COLACE) CAP PO SCH (20:39)
[2022-07-26] MEDS: LACTATED RINGERS 1,000 ML IV SCH ×2 (20:39→21:45)
[2022-07-26] MEDS ORDERED: DOCUSATE SODIUM 100 MG (COLACE) CAP PO SCH (21:00)
[2022-07-27 04:00] VITALS: BP 135/110
[2022-07-27] MEDS: NS IV 1000 ML 1,000 ML IV SCH (05:06)
[2022-07-27 05:39] LABS: BASOPHILS % (AUTO) 0 % (0-10); EOSINOPHILS # (AUTO) 0.2 10^3/uL (0.0-0.3); EOSINOPHILS % (AUTO) 2 % (0-10); HEMATOCRIT 44 % (40-54); HEMOGLOBIN 15.3 g/dL (13.3-17.7); LYMPHOCYTES % (AUTO) 21 % (12-44); MEAN CORPUSCULAR HEMOGLOBIN 30 pg (25-34); MEAN CORPUSCULAR HGB CONC 35 g/dL (32-36); MEAN CORPUSCULAR VOLUME 86 fL (80-99); MEAN PLATELET VOLUME 10.8 fL (9.0-12.2); MONOCYTES # (AUTO) 0.8 10^3/uL (0.0-1.0); MONOCYTES % (AUTO) 9 % (0-12); NEUTROPHILS # (AUTO) 6.4 10^3/uL (1.8-7.8); NEUTROPHILS % (AUTO) 67 % (42-75); PLATELET COUNT 186 10^3/uL (130-400); WHITE BLOOD COUNT 9.5 10^3/uL (4.3-11.0)
[2022-07-27 06:17] LABS: CALCIUM 8.9 MG/DL (8.5-10.1); POTASSIUM 3.6 MMOL/L (3.6-5.0)
[2022-07-27 08:00] VITALS: BP 144/78
[2022-07-27] MEDS: LACTATED RINGERS 1,000 ML IV SCH (08:23)
[2022-07-27] MEDS: DOCUSATE SODIUM 100 MG (COLACE) CAP PO SCH (08:45)
--- NOTE | 2022-07-27 08:52 | Cardiology Progress Note ---
Subjective Date Seen by Provider: Jul 27, 2022 Time Seen by Provider: 08:50 Subjective/Events-last exam Patient was seen at bedside, laying down comfortably no active chest pain Review of Systems General: No Chills, No Night Sweats, No Fatigue, No Malaise, No Appetite, No Other HEENT: No Head Aches, No Visual Changes, No Eye Pain, No Ear Pain, No Dysphasia, No Sinus Congestion, No Post Nasal Drip, No Sore Throat, No Other Pulmonary: No Dyspnea, No Cough, No Pleuritic Chest Pain, No Other Cardiovascular: No: Chest Pain, Palpitations, Orthopnea, Paroxysmal Noc. Dyspnea, Edema, Lt Headedness, Other Objective-Cardiology Exam Last Set of Vital Signs Vital Signs 07/27/22 07/27/22 04:00 08:00 Temp 36.0 Pulse 77 Resp 13 B/P (MAP) 144/78 (100) Pulse Ox 99 O2 Delivery Room Air I&O Intake and Output 07/27/22 00:00 Intake Total 1500 ml Output Total 1050 ml Balance 450 ml Intake Oral 500 ml IV Total 1000 ml Output Urine Total 1050 ml Daily Weight Change No General: Alert, Oriented X3, Cooperative HEENT: Atraumatic, PERRLA Neck: Supple, No JVD, No Thyromegaly Lungs: Clear to Auscultation, Normal Air Movement Heart: Regular Rate, Normal S1, Normal S2, No Murmurs Abdomen: Normal Bowel Sounds, Soft, No Tenderness, No Hepatosplenomegaly, No Masses Extremities: No Clubbing, No Cyanosis, No Edema, Normal Pulses, No Tenderness/Swelling Skin: No Rashes, No Breakdown, No Significant Lesion Neuro: Normal Gait, Normal Speech, Strength at 5/5 X4 Ext, Normal Tone, Sensation Intact Psych/Mental Status: Mental Status NL, Mood NL Results Lab Laboratory Tests 07/27/22 04:55 A/P-Cardiology Admission Diagnosis Chest pain Non-ST elevation myocardial infarction Dyspnea on exertion Tobaccoism Assessment/Plan Non-ST elevation myocardial infarction, subacute myocardial infarction Emergency cardiac catheterization with complex intervention and stenting to the right coronary artery with 2 stents Osiro 3.5 x 15 followed by 3.5x 40 both dilated proximally to 3.8 and distally 3.7, excellent result, reestablishing flow to the dominant right coronary artery. Proximal right coronary artery has 50 to 60% lesion, ostial obtuse marginal has 50 to 60% lesion, planning for stress test as an outpatient Continue on aspirin and Plavix Congestive heart failure, acute left ventricular systolic dysfunction, ischemic cardiomyopathy ejection fraction 45% Started on Coreg and losartan, Adding Jardiance Hypertension, started on Coreg and losartan, monitor blood pressure Hyperlipidemia/hypertriglyceridemia Started on Lipitor 80 mg daily Tobaccoism, educated on smoking cessation Strong family history of heart disease BMI 38, we discussed weight loss TAYO HART MD Jul 27, 2022 08:52
[2022-07-27] MEDS: TICAGRELOR 90 MG TABLET (BRILINTA) PO SCH (08:53)
[2022-07-27] MEDS ORDERED: ASPI81TA64 PO (08:54)
[2022-07-27] MEDS ORDERED: LOSA25TA41 PO (08:54)
[2022-07-27] MEDS ORDERED: ATOR80TA76 PO (08:54)
[2022-07-27] MEDS ORDERED: PANT40TA52 PO (08:54)
[2022-07-27] MEDS ORDERED: EMPA10TA PO (08:54)
[2022-07-27] MEDS ORDERED: TICA90TA PO (08:54)
[2022-07-27] MEDS ORDERED: CARV6.252 PO (08:54)
--- NOTE | 2022-07-27 08:55 | Discharge Inst-Post CATH ---
Discharge Inst-CATH/EP Problems Reviewed?: Yes Post Cardiac Cath/EP D/C Inst Follow Up/Plan Appointment with Dr. Martins's office in 1 week <b>CARDIAC CATH/EP PROCEDURE DISCHARGE INSTRUCTIONS</b> ACTIVITY * Go Home directly and rest. * Limit activity of the leg (or wrist if it was used) for 7 days including aerobics, swimming, jogging, bicycling, etc. * Restrict stair-climbing for 7 days if possible, if not, climb up with your non-cath leg, then bring together on the same step. * Avoid lifting, pushing, pulling or excessive movement of the affected extremity for 7 days. * Customary sexual activity may be resumed after 2 days-use caution not to use a position that strains or causes pain to the affected extremity. * No driving for 24 hours. * NO SMOKING. * Avoid straining for bowel movements for 7 days. * Gentle walking on level ground is allowed. * Returning to work will depend on the type of procedure and the results. Your doctor will discuss this with you. CALL YOUR DOCTOR FOR ANY OF THE FOLLOWING: *If bleeding from the puncture site occurs- Apply gentle pressure to site with clean cloth and call your doctor or EMS. * If a knot or lump forms under the skin, increases in size, or causes pain. * If bruising appears to be worsening or moving further down your leg instead of disappearing. * Temperature above 101 F. CARE OF YOUR GROIN INCISION; * Bruising or purple discoloration of the skin near the puncture site is common. * You may shower only, no bathtub bathing for 5 days. Be careful to avoid slipping as your leg may feel stiff. * If a closure device was used on your femoral artery, please see the attached guide regarding care of the device and your leg. * Leave dressing on FOR 24 hours. CARE OF YOUR WRIST INCISION; * Bruising or purple discoloration of the skin near the puncture site is common. * You may shower. * DO NOT submerge wrist. * Leave dressing on FOR 24 hours. TAYO MARTINS MD Jul 27, 2022 08:55
[2022-07-27] MEDS ORDERED: EMPAGLIFLOZIN 10 MG TABLET (JARDIANCE) PO SCH (09:00)
[2022-07-27] MEDS ORDERED: ASPIRIN E.C. 81 MG (ECOTRIN) TAB PO SCH (09:00)
[2022-07-27] MEDS ORDERED: PANTOPRAZOLE 40 MG (PROTONIX) TAB PO SCH (09:00)
[2022-07-27] MEDS ORDERED: ASPIRIN 81 MG CHEW (CHILDREN'S ASA) PO SCH ×2 (09:00)
[2022-07-27] MEDS ORDERED: LOSARTAN 25 MG (COZAAR) TAB PO SCH (09:00)
--- NOTE | 2022-07-27 16:39 | Short Stay Summary-Hospitalist ---
History of Present Illness HPI/Chief Complaint Nils Everett is a 42 year old male with PMH tobacco abuse, obesity, who presented with chest pain. His troponin was elevated. Cardiology was consulted. He was taken for left heart cath. He was found to have a lesion in the right coronary artery. Two stents were placed. He is no longer having any symptoms. He denies chest pain. He denies shortness of breath. He does not have a primary care physician. Source: patient Exam Limitations: no limitations Date Seen 07/27/22 Time Seen by a Provider: 11:40 Attending Physician No,Local Physician PCP Admitting Physician: Clementina Cotter MD Attending Physician: Clementina Cotter MD Referring Physician Date of Admission Jul 26, 2022 at 13:24 Home Medications & Allergies Home Medications Reviewed patient Home Medication Reconciliation performed by pharmacy medication reconciliations special effects technician and/or nursing. Patients Allergies have been reviewed. Allergies Allergies Coded Allergies Penicillins (Verified Allergy, Unknown, 03/24/19) Past Zhfhkov-Uqgdqu-Bryfhl Hx Patient Social History Marrital Status: Employed/Student: employed Tobacco Use?: Yes Tobacco type used: Cigarettes Smoking Status: Current Everyday Smoker Use of E-Cig and/or Vaping dev: No Substance use?: No Alcohol Use?: No Pt feels they are or have been: No Seasonal Allergies Seasonal Allergies: No Current Status Advance Directives: No Communicates: Verbally Primary Language: Australian Preferred Spoken Language: Australian Is interpretation needed?: No Sensory deficits: Vision impairment Implanted or Applied Medical D: None Past Medical History Blood Disorders: No Family Medical History No Pertinent Family Hx Review of Systems Constitutional: no symptoms reported Respiratory: no symptoms reported Cardiovascular: chest pain Gastrointestinal: no symptoms reported Physical Exam Physical Exam Vital Signs Vital Signs - First Documented 07/26/22 08:38 Temp 35.9 Pulse 82 Resp 15 B/P (MAP) 169/112 (131) Pulse Ox 100 O2 Delivery Room Air Capillary Refill : Less Than 3 Seconds Height, Weight, BMI Height: '" Weight: lbs. oz. kg; 37.31 BMI Method: General Appearance: No Apparent Distress, Obese Eyes: Bilateral Eye Normal Inspection, Bilateral Eye PERRL, Bilateral Eye EOMI Neck: Normal Inspection, Supple Respiratory: Lungs Clear, Normal Breath Sounds, No Respiratory Distress, Other (Reproducible tenderness present over the right side fourth and fifth costochondral junctions) Cardiovascular: Regular Rate, Rhythm, No Edema, No Murmur Gastrointestinal: Normal Bowel Sounds, Soft Extremity: Normal Inspection, No Pedal Edema Neurologic/Psychiatric: Alert, Oriented x3, Normal Mood/Affect Skin: Normal Color Results Results/Procedures Labs Laboratory Tests 07/26/22 08:45 07/27/22 04:55 Patient resulted labs reviewed. Short Stay Diagnosis Discharge Diagnosis-Short Stay Admission Diagnosis NSTEMI Final Discharge Diagnosis NSTEMI Conclusion Plan NSTEMI CAD HTN HLD Tobacco abuse Obesity s/p left heart cath with two stents placed ASA Brilinta Lipitor Losartan Coreg Jardiance Recommended smoking cessation Diagnosis/Problems Diagnosis/Problems (1) NSTEMI (non-ST elevated myocardial infarction) Status: Acute (2) CAD (coronary artery disease) Status: Acute Qualifiers: (3) HTN (hypertension) Status: Acute Qualifiers: Qualified Codes: I10 - Essential (primary) hypertension (4) HLD (hyperlipidemia) Status: Acute (5) Tobacco abuse Status: Acute (6) Obesity Status: Acute Clinical Quality Measures AMI/AHF: ASA po Prior to arrival: CLEMENTINA Marvin MD Jul 27, 2022 16:39
== END 2022-07-27 12:20 | disposition home or self-care (01) | DRG 246 ==
LOC: EDUNIT# 08:30 → ER FS 08:31 → CSD 13:24
PROVIDERS: ADMIT Internal Medicine; ATTEND Internal Medicine
PROC: 027035Z Dilation of Coronary Artery, One Artery with Two Drug-eluting Intraluminal Devices, Percutaneous Approach (ICD-10-PCS; principal; 2022-07-26)
PROC: 4A023N7 Measurement of Cardiac Sampling and Pressure, Left Heart, Percutaneous Approach (ICD-10-PCS; 2022-07-26)
PROC: B2111ZZ Fluoroscopy of Multiple Coronary Arteries using Low Osmolar Contrast (ICD-10-PCS; 2022-07-26)
PROC: B2151ZZ Fluoroscopy of Left Heart using Low Osmolar Contrast (ICD-10-PCS; 2022-07-26)
DX: I21.4 Non-ST elevation (NSTEMI) myocardial infarction (principal); I50.21 Acute systolic (congestive) heart failure; I25.10 Atherosclerotic heart disease of native coronary artery without angina pectoris; E78.5 Hyperlipidemia, unspecified; F17.210 Nicotine dependence, cigarettes, uncomplicated; E66.9 Obesity, unspecified; Z82.49 Family history of ischemic heart disease and other diseases of the circulatory system; Z68.38 Body mass index [BMI] 38.0-38.9, adult; E78.00 Pure hypercholesterolemia, unspecified; I11.0 Hypertensive heart disease with heart failure; I25.5 Ischemic cardiomyopathy
CPT/HCPCS: 36140; 36415; 71045; 80048; 80053; 80061; 80306; 81000; 83735; 84484; 85025; 85027; 85347; 93041; 93306; 93458

== ENCOUNTER → 2022-09-11 | Outpatient (CLI) | payer BC ==
[~2022-09-11] MED LIST changes: +ASPI81TA64 PO; +ATOR80TA76 PO; +CARV6.252 PO; +CATHETER FLUSH 10 ML SYR IVP PRN; +EMPA10TA PO; +LOSA25TA41 PO; +PANT40TA52 PO; +TICA90TA PO
[2022-09-11 09:35] VITALS: BP 136/90
--- NOTE | 2022-09-11 11:53 | Cardiology Stress Test Report ---
Stress Test Report Date of Procedure/Referring: Date of Procedure: September 11, 2022 PCP No,Local Physician Admitting Physician Admitting Physician: Attending Physician: Tayo Martins MD Indications: CAD Baseline Heart Rate: 73 Baseline Blood Pressure: Blood Pressure Systolic: 136 Blood Pressure Diastolic: 90 Vital Signs Date Time Temp Pulse Resp B/P (MAP) Pulse Ox O2 Delivery O2 Flow Rate FiO2 09/11/22 09:35 73 16 136/90 (105) 98 Room Air Baseline Vital Signs Vital Signs Date Time Temp Pulse Resp B/P (MAP) Pulse Ox O2 Delivery O2 Flow Rate FiO2 09/11/22 09:35 73 16 136/90 (105) 98 Room Air Baseline EKG: Baseline EKG: NSR Summary: After explaining the procedure and details to the patient, he signed the consent and was brought to the stress nuclear laboratory. Patient exercised on standard Alli protocol, EKG, heart rate and blood pressure were monitored continuously, resting and stress doses of radio tracer were injected, imaging was acquired and reviewed in the short axis, horizontal long axis and vertical long axis views Patient was able to exercise for a total of 8 minutes on Alli protocol, METs 9.7 Maximum heart rate 150 Maximum blood pressure 199/98 Stress EKG, Minimal nondiagnostic changes Recovery EKG, Return to baseline TID: 0.9 SSS: 0 SDS: 0 EF: 51 Conclusion: Good exercise tolerance for 8 minutes on standard Alli protocol, 9.7 METS achieving 90% of maximal expected heart rate Appropriate heart rate response to exercise with hypertensive response to exercise with peak blood pressure 199/98 return to baseline during recovery Minimal nondiagnostic EKG changes with exercise return to baseline during recovery No significant ischemia or infarction noted on SPECT images Normal left ventricular size, ejection fraction 51% TAYO MARTINS MD September 11, 2022 11:53
== END ==
LOC: CARD 08:20
PROVIDERS: ATTEND Internal Medicine Cardiovascular Disease
DX: I25.10 Atherosclerotic heart disease of native coronary artery without angina pectoris (principal)
CPT/HCPCS: 78452; 93017; A9502